=== PATIENT | male | born 1965 | race Caucasian/White ===

== ENCOUNTER 2021-03-27 08:30 | Emergency (ER) | payer OTHER ==
[~2021-03-27] VITALS: Ht 190.5 cm; Wt 117.9 kg
[2021-03-27 10:09] LABS: BASOPHILS ABSOLUTE AUTO 0.03 K/mm3 (0.00-0.23); BASOPHILS PERCENT AUTO 0 % (0-2); EOSINOPHILS ABSOLUTE AUTO 0.08 K/mm3 (0.00-0.68); EOSINOPHILS PERCENT AUTO 1 % (0-6); Hematocrit 40.9 % (37.0-53.0); Hemoglobin 13.5 g/dL (13.5-17.5); IMMATURE GRAN ABSOLUTE AUTO 0.05 K/mm3 (0.00-0.10); IMMATURE GRAN PERCENT AUTO 0 % (0-1); LYMPHOCYTES ABSOLUTE AUTO 1.92 K/mm3 (0.84-5.20); LYMPHOCYTES PERCENT AUTO 16 % (21-46); MONOCYTES ABSOLUTE AUTO 1.07 K/mm3 (0.16-1.47); MONOCYTES PERCENT AUTO 9 % (4-13); Mean Corpuscular Volume 88 fL (80-100); Mean Platelet Volume 8.9 fL (9.1-12.4); NEUTROPHILS ABSOLUTE AUTO 8.77 K/mm3 (1.96-9.15); NEUTROPHILS PERCENT AUTO 74 % (41-73); Platelet Count 265 K/mm3 (150-400); RDW Coefficient Variation 12.5 % (11.7-14.2); RDW Standard Deviation 40.6 fL (35.1-46.3); Red Blood Cell Count 4.65 M/mm3 (4.30-5.90); White Blood Cell Count 11.92 K/mm3 (4.00-11.30)
[2021-03-27 10:28] LABS: Alanine Aminotransfer (ALT/SGP 38 U/L (12-78); Albumin, Blood 3.7 g/dL (3.4-5.0); Albumin/Globulin Ratio 0.9 (0.8-1.8); Alk Phos 73 U/L (50-136); Anion Gap 6 mmol/L (6-16); Aspartate Aminotrans (AST/SGOT 14 U/L (12-37); Bilirubin, Total 0.6 mg/dL (0.1-1.0); Blood Urea Nitrogen 13 mg/dL (8-24); Bun/Creatinine Ratio 15.2 (12.0-20.0); CO2, Blood 29 mmol/L (21-32); Calcium, Blood 8.8 mg/dL (8.5-10.1); Chloride, Blood 100 mmol/L (98-108); Creatinine, Blood 0.86 mg/dL (0.60-1.20); Globulin, Blood 4.2 g/dL (2.2-4.0); Glomerular Filtration Rate >60 (60-); Glucose, Blood 140 mg/dL (70-99); Potassium, Blood 4.4 mmol/L (3.5-5.5); Sodium, Blood 135 mmol/L (136-145); Total Protein, Blood 7.9 g/dL (6.4-8.2); Troponin I <0.015 ng/mL (0.000-0.040)
[2021-03-27 10:29] LABS: CPK Creatine Kinase 108 U/L (39-308)
[2021-03-27 10:37] LABS: Creatine Kinase MB <1.0 ng/mL (0.0-3.6); Creatine Kinase MB Index Unable to Calculate (0.0-4.0)
== END 2021-03-27 11:11 | disposition home or self-care (01) ==
LOC: ER 08:30
PROVIDERS: Emergency Medicine
DX: T67.5XXA Heat exhaustion, unspecified, initial encounter (principal); R73.9 Hyperglycemia, unspecified; F17.200 Nicotine dependence, unspecified, uncomplicated; X30.XXXA Exposure to excessive natural heat, initial encounter
CPT/HCPCS: 36415; 80053; 82550; 82553; 84484; 85025; 93005; 93010; 96360; 99284-25; J7030

== ENCOUNTER 2023-05-02 12:20 | Day surgery (SDC) | payer OTHER ==
[~2023-05-02] VITALS: Ht 190.5 cm; Wt 113.0 kg
[2023-05-02] MEDS ORDERED: MICARDIS PO (12:44)
[2023-05-02] MEDS ORDERED: NABU500 PO (12:44)
[2023-05-02] MEDS ORDERED: METF500 PO (12:45)
[2023-05-02] MEDS ORDERED: ATOR10 PO (12:45)
[2023-05-02] MEDS ORDERED: BENZ100A (12:45)
[2023-05-02] MEDS ORDERED: BENZ100A PO (12:46)
[2023-05-02] MEDS ORDERED: ALBU90OI INH (12:46)
[2023-05-02] MEDS ORDERED: HYDROCODONE-AC1 EA19 PO (12:50)
[2023-05-02 13:44] VITALS: BP 155/115
== END 2023-05-02 14:00 | disposition home or self-care (01) ==
LOC: ORSCSDS 12:20
PROVIDERS: Specialist
PROC: 0DBK8ZX Excision of Ascending Colon, Via Natural or Artificial Opening Endoscopic, Diagnostic (ICD-10-PCS; principal; 2023-05-02 13:45)
PROC: 0DBL8ZX Excision of Transverse Colon, Via Natural or Artificial Opening Endoscopic, Diagnostic (ICD-10-PCS; principal; 2023-05-02 13:45)
DX: Z12.11 Encounter for screening for malignant neoplasm of colon (principal); Z86.010 Personal history of colon polyps; Z83.71 Family history of colonic polyps; D12.2 Benign neoplasm of ascending colon; D12.3 Benign neoplasm of transverse colon; K57.30 Diverticulosis of large intestine without perforation or abscess without bleeding; E11.9 Type 2 diabetes mellitus without complications; I10 Essential (primary) hypertension; E78.2 Mixed hyperlipidemia; F17.210 Nicotine dependence, cigarettes, uncomplicated; Z79.84 Long term (current) use of oral hypoglycemic drugs; Z79.899 Other long term (current) drug therapy
CPT/HCPCS: 82947; 88305; J0461; J2405; J2704; J7120